=== PATIENT | female | born 1985 | race Caucasian/White ===

== ENCOUNTER 2020-09-06 12:32 | Emergency (ER) | payer SELFPAY ==
[2020-09-06 12:37] VITALS: BP 141/67; PULSE 82; RESP 18; TEMP 36.4; O2SAT 100; BMI 18.6
--- NOTE | 2020-09-06 12:46 | W.ED.PSYCH ---
HPI - Psych General: Chief Complaint: General Medical Stated Complaint: WITHDRAWS. Time Seen by Provider: 09/06/20 12:40 Source: patient, EMS and police Mode of arrival: EMS Limitations: no limitations History of Present Illness: HPI Narrative: Patient recently arrested approximately 12 hours ago. Patient reportedly been doing IV fentanyl. Patient states she did not use any other drugs. She feels like she is going through withdrawals now. She is very shaky. No seizure activity. Patient is in police custody. Onset (ago): hour(s) (2) Duration: constant History of same: Yes Relieving factors: none Exacerbating factors: drug use Context: recent drug abuse Associated psychiatric symptoms: none Associated symptoms: Deny delusions Treatments prior to arrival: none Review of Systems Const: Denies: fever(s) or chills Eyes: Denies: change in vision ENMT: Denies: throat pain Card: Denies: chest pain or palpitations Resp: Denies: dyspnea or wheezing GI: Denies: abdominal pain, nausea or vomiting : Denies: flank pain Musc: Denies: neck pain or back pain Skin/Breast: Denies: rash or pruritus Neuro: Reports: other (Patient has diffuse shaking consistent with narcotic withdrawal. No seizure); Denies: headache(s) or numbness in extremities Psych: Reports: anxiety Catracho/Lymph: Denies: enlarged lymph nodes Physical Exam Const: COMMON NORMALS: patient oriented x3, no limitations, alert and well nourished EXAM LIMITATIONS: altered mental status GENERAL APPEARANCE: cooperative, disheveled and other (Poor hygiene) ORIENTATION/CONSCIOUSNESS: Yes awake, Yes oriented to person, Yes oriented to place and Yes oriented to time; not confused HENMT: COMMON NORMALS: normocephalic and atraumatic HEAD & SCALP: normocephalic and atraumatic FACE & SINUS: normal facial exam MOUTH: Normal oral and palatal mucosa present TEETH & GINGIVA: Yes poor dentition Eye: COMMON NORMALS: Equal, round and reactive pupils present, EOMs intact bilaterally and conjunctivae normal CONJUNCTIVA: Yes conjunctivae normal PUPIL: Yes Equal, round and reactive pupils present Neck/C-Spine: COMMON NORMALS: full ROM, no lymphadenopathy, supple and no meningeal signs GENERAL: Yes normal visual inspection Lymph: LYMPHATIC: no lymphadenopathy noted Chest: COMMONS NORMALS: normal inspection of the chest and normal palpation of entire chest wall CHEST: No Ecchymosis present and No rash Resp: COMMON NORMALS: normal respiratory effort, No retractions and clear to auscultation bilaterally EFFORT & INSPECTION: No respiratory distress AUSCULTATION: clear to auscultation bilaterally Cardio: COMMON NORMALS: regular rate, regular rhythm and Peripheral pulses 2+ throughout JUGULAR VENOUS DISTENTION: no JVD RATE: regular rate RHYTHM: regular rhythm PERIPHERAL PULSES: Peripheral pulses 2+ throughout GI: COMMON NORMALS: Normal to inspection, nondistended, normoactive bowel sounds present and non-tender : COMMON NORMALS: Yes no CVA tenderness BLADDER/KIDNEY EXAM: Yes no CVA tenderness Back/Pelvis: COMMON NORMALS: no CVA tenderness Extremity: COMMON NORMALS: normal to inspection, full ROM and capillary refill normal Neuro: COMMON NORMALS: patient oriented x3, CN's II-XII intact bilaterally, no focal motor deficits, no sensory deficits noted and deep tendon reflexes 2+ bilaterally SENSORIUM/ORIENTATION: Yes alert, Yes oriented to person, Yes oriented to place and Yes oriented to time MENINGEAL SIGNS: Yes no meningeal signs Psych: COMMON NORMALS: mental status grossly normal, Normal thought process present and speech normal (Severe anxiety) SPEECH: Yes normal speech (Severe anxiety) THOUGHT PROCESS: Normal thought process present THOUGHT CONTENT: No delusions OTHER: Tremulous consistent with narcotic withdrawal. Skin: COMMON NORMALS: no rashes or lesions noted and no wounds GENERAL SKIN EXAM: no rashes or lesions noted Course ED course: 1432: Patient feeling much better after medication. Patient is medically cleared to be discharged back to residential. Vital Signs: Vital signs: Vital Signs Temperature 97.6 F 09/06/20 12:37 Pulse Rate 58 L 09/06/20 13:58 Respiratory Rate 18 09/06/20 12:37 Blood Pressure 120/69 09/06/20 13:58 Pulse Oximetry 100 09/06/20 13:58 MDM - Psych Differential Diagnosis: Psych Differential Diagnosis: Likely acute anxiety (Narcotic withdrawal) Lab Data: Labs: Lab Results 09/06/20 09/06/20 09/06/20 Range/Units 13:21 13:28 13:28 WBC 3.4 L (4.0-10.0) 10^3/ uL RBC 4.56 (4.1-5.3) 10^6/u L Hgb 13.4 (11.5-15.3) g/dL Hct 40.2 (37.0-47.0) % MCV 88.2 (81-99) fL MCH 29.4 (28.0-34.0) pg MCHC 33.3 (30.0-36.0) g/dL RDW 13.2 (12.1-15.1) % Plt Count 217 (130-400) 10^3/c mm MPV 10.0 (7.4-10.4) fL Neut % (Auto) 62.3 % Lymph % (Auto) 30.1 % [place] % (Auto) 6.7 % Eos % (Auto) 0.3 % Baso % (Auto) 0.3 % Neut # (Auto) 2.13 (1.8-7.7) 10^3/u L Lymph # (Auto) 1.0 (0.8-4.8) 10^3/u L [place] # (Auto) 0.2 (0.2-0.9) 10^3/u L Eos # (Auto) 0.0 (0.0-0.8) 10^3/u L Baso # (Auto) 0.0 (0.0-0.1) 10^3/u L Nucleated RBC % (a uto) 0 % Nucleated RBCs # 0.0 /100WBC Sodium 138 (136-145) mmol/L Potassium 3.9 (3.5-5.1) mmol/L Chloride 101 (98-107) mmol/L Carbon Dioxide 24 (22-29) mmol/L Anion Gap 16.9 (5-19) BUN 11 (6-20) mg/dL Creatinine 0.5 (0.5-0.9) mg/dL GFR Calculation 141.2 H (90-130) mL/min Glucose 87 (65-115) mg/dL POC Glucose 115 H (70-110) mg/dL Calculated Osmolal ity 285 (285-295) mOsm/k g Calcium 8.3 L (8.5-10.5) mg/dL Total Bilirubin 0.5 (0.15-1.2) mg/dL AST 30 (0-32) U/L ALT 18 (0-33) U/L Alkaline Phosphata se 88 (35-105) IU/L Total Protein 6.9 (6.6-8.7) g/dL Albumin 3.9 (3.5-5.2) g/dL Globulin 3.0 (1.3-4.6) g/dL Discharge Plan Discharge Patient Disposition: Home Clinical Impression: Acute narcotic withdrawal Condition: Stable Prescriptions: New ondansetron HCl [Zofran] 4 mg tablet 4 mg PO Q6H PRN (Reason: nausea and vomiting) Qty: 10 RF: 2 Discharge Orders: Discharge ED (Routine); Ordered 09/06/20 Ordered By: Cesar Garcia Referrals: Ladarius Doll FNP [Primary Care Provider] - Discharge Diet: Advance as tolerated Discharge Activity: Increase activity as tolerated Patient Instructions: Narcotic Abuse (ED), Opioid Withdrawal (ED), Opioid Safety Activity Restrictions/Additional Instructions: Avoid narcotic use. Drink plenty of fluids. Take Zofran if you become nauseated. Coding Level of Care Code ED Heavy [employer] We[employer] for [employer] Fwd Exam Comprehensive
[2020-09-06 12:49] VITALS: O2SAT 100
[2020-09-06 13:37] LABS: Basophils % 0.3 %; Eosinophils % 0.3 %; Hematocrit 40.2 % (37.0-47.0); Hemoglobin 13.4 g/dL (11.5-15.3); Lymphocytes % 30.1 %; Mean Corpuscular HGB Conc 33.3 g/dL (30.0-36.0); Mean Corpuscular Hemoglobin 29.4 pg (28.0-34.0); Mean Corpuscular Volume 88.2 fL (81-99); Monocytes # 0.2 10^3/uL (0.2-0.9); Monocytes % 6.7 %; Neutrophils # 2.13 10^3/uL (1.8-7.7); Neutrophils % 62.3 %; Nucleated Red Blood Cells % 0 %; Platelet Count 217 10^3/cmm (130-400); Red Blood Count 4.56 10^6/uL (4.1-5.3); Red Cell Distribution Width 13.2 % (12.1-15.1); White Blood Count 3.4 10^3/uL (4.0-10.0)
[2020-09-06 13:41] LABS: Glucose Point of Care 115 mg/dL (70-110)
[2020-09-06] MEDS: morphine 4 mg/mL SDV 1 mL 2 MG IVP (13:56)
[2020-09-06] MEDS: LORazepam 2 mg/mL INJ 1 mL 1 MG IVP (13:56)
[2020-09-06 13:58] VITALS: BP 120/69; PULSE 58; O2SAT 100
[2020-09-06 14:01] LABS: Alanine Aminotransferase 18 U/L (0-33); Albumin Level 3.9 g/dL (3.5-5.2); Alkaline Phosphatase 88 IU/L (35-105); Blood Urea Nitrogen 11 mg/dL (6-20); Calcium 8.3 mg/dL (8.5-10.5); Carbon Dioxide 24 mmol/L (22-29); Chloride 101 mmol/L (98-107); Glomerular Filtration Rate 141.2 mL/min (90-130); Glucose 87 mg/dL (65-115); Osmolality Calculated 285 mOsm/kg (285-295); Sodium 138 mmol/L (136-145); Total Bilirubin 0.5 mg/dL (0.15-1.2); Total Protein 6.9 g/dL (6.6-8.7)
[2020-09-06 14:03] LABS: Anion Gap 16.9 (5-19); Aspartate Amino Transferase 30 U/L (0-32); Potassium 3.9 mmol/L (3.5-5.1)
[2020-09-06 15:07] VITALS: BP 121/75; PULSE 68; RESP 16; O2SAT 100
== END 2020-09-06 15:10 | disposition home or self-care (01) ==
PROVIDERS: Emergency Provider Family Medicine; PCP Nurse Practitioner Family
DX: F11.23 Opioid dependence with withdrawal (principal)
CPT/HCPCS: 36416; 80053; 82962; 85025; 96374; 96375; 99284; J2060; J2270